=== PATIENT | female | born 1970 | race Caucasian/White ===

== ENCOUNTER 2016-10-06 07:09 | Emergency (ER) | payer BC ==
[2016-10-06] MEDS ORDERED: Sulfamethox/Trimethoprim DS 800/160* TAB PO ONE (07:32)
--- NOTE | 2016-10-06 07:32 | UC ---
Complaint Female HPI - HPI Summary HPI Summary: URINARY FREQUENCY X 1 DAY NO FEVER, NO CHILLS, NO FLANK PAIN - History Of Current Complaint Chief Complaint: UCGU Stated Complaint: URINARY COMPLAINT Time Seen by Provider: 10/06/16 07:13 Hx Obtained From: Patient Hx Last Menstrual Period: 10/03/16 ?: No Onset/Duration: Sudden Onset, Lasting Days - 1, Still Present Timing: Constant Severity Initially: Moderate Severity Currently: Moderate Character: Burning Aggravating Factor(s): Nothing Alleviating Factor(s): Nothing Associated Signs And Symptoms: Negative: Fever, Back Pain, Vaginal Bleeding/ Discharge, Vaginal Discharge, Nausea, Vomiting(# Of Episodes =), Genital Swelling, Genital Blisters, Retained Foregin Body (Specify) - Allergies/Home Medications Allergies/Adverse Reactions: Allergies Allergy/AdvReac Type Severity Reaction Status Date / Time Cefaclor [From Ceclor] Allergy Hives Verified 10/06/16 07:14 Morphine Allergy Hives Verified 10/06/16 07:14 Home Medications: Home Medications Phenazopyridine HCl [Azo Urinary Pain Relief] 95 mg PO ONCE PRN 10/06/16 [ History Confirmed 10/06/16] PMH/Surg Hx/FS Hx/Imm Hx Endocrine History Of: Reports: Diabetes - boarderline Cardiovascular History Of: Reports: Hypertension - Surgical History Surgical History: Yes Surgery Procedure, Year, and Place: C-Sections, 1991 2002. Cholecystectomy, 1993 - Family History Known Family History: Positive: Diabetes Negative: Cardiac Disease - Social History Alcohol Use: Occasionally Substance Use Type: None Smoking Status (MU): Former Smoker When Did the Patient Quit Smoking/Using Tobacco: 24 years ago Review of Systems Constitutional: Negative Skin: Negative Eyes: Negative ENT: Negative Respiratory: Negative Genitourinary: Dysuria, Frequency All Other Systems Reviewed And Are Negative: Yes Physical Exam Triage Information Reviewed: Yes Appearance: Well-Appearing, Obese Vital Signs: Initial Vital Signs Temp 97.6 F 10/06/16 07:16 Pulse 94 10/06/16 07:16 Resp 20 10/06/16 07:16 BP 142/76 10/06/16 07:16 Pulse Ox 97 10/06/16 07:16 Vital Signs Reviewed: Yes Eyes: Positive: Conjunctiva Clear ENT: Positive: Normal ENT inspection, Hearing grossly normal, Pharynx normal Neck: Positive: Supple, Nontender, No Lymphadenopathy Respiratory: Positive: Chest non-tender, Lungs clear, Normal breath sounds Cardiovascular: Positive: RRR, No Murmur, Pulses Normal Abdominal Exam: Normal Abdomen Description: Positive: Nontender, Soft. Negative: CVA Tenderness (R), CVA Tenderness (L), Distended, Guarding Bowel Sounds: Positive: Present Skin Exam: Normal Complaint Female Dx - Differential Dx/Diagnosis Provider Diagnoses: UTI Discharge - Discharge Plan Condition: Stable Disposition: HOME Prescriptions: Sulfamethox/Trimethoprim DS* [Bactrim DS 800/160 TAB*] 1 tab PO BID #14 tab Patient Education Materials: Urinary Tract Infection in Women (ED) Referrals: Eladia Hernandez [Primary Care Provider] - If Needed
[2016-10-06 07:58] VITALS: BP 147/90
== END 2016-10-06 07:53 | disposition home or self-care (01) ==
LOC: UCCORT 07:09
DX: N39.0 Urinary tract infection, site not specified (principal); Z88.1 Allergy status to other antibiotic agents; Z88.5 Allergy status to narcotic agent; Z87.891 Personal history of nicotine dependence; E66.9 Obesity, unspecified
CPT/HCPCS: 87077; 87086; 99212; A9270-GY; G0463

== ENCOUNTER 2016-10-26 18:01 | Emergency (ER) | payer BC ==
[2016-10-26 19:15] VITALS: BP 120/77
--- NOTE | 2016-10-26 19:50 | UC ---
Throat Pain/Nasal Don HPI - HPI Summary HPI Summary: The patient comes in today for: 1. Sore throat: Onset: This morning. Palliative/provocative: Swallowing: Ice cubes and popsicles help. Quality: [place] Region: Throat. Severity: 8/10 Time: Constant. Associated symptoms: Fevers: 101 at home. Rhinitis: None. Cough: None. Patient states that she has had no problems with amoxil or augmentin. * - History of Current Complaint Chief Complaint: UCGeneralIllness Stated Complaint: ST,TROUBLE SWALLOWING,EAR PAIN Time Seen by Provider: 10/26/16 19:34 Hx Obtained From: Patient Hx Last Menstrual Period: 10/03/16 ?: No - Allergies/Home Medications Allergies/Adverse Reactions: Allergies Allergy/AdvReac Type Severity Reaction Status Date / Time [facility] Allergy Hives Verified 10/26/16 19:07 Morphine Allergy Hives Verified 10/26/16 19:07 Home Medications: Home Medications Ibuprofen [Advil] 800 mg PO PRN 10/26/16 [History] PMH/Surg Hx/FS Hx/Imm Hx Previously Healthy: No Endocrine History Of: Reports: Diabetes - boarderline Denies: Thyroid Disease, Hyperthyroidism, Hypothyroidism, Dyslipidemia Cardiovascular History Of: Reports: Hypertension Denies: Cardiac Disorders, Pacemaker/ICD, Myocardial Infarction, Congestive Heart Failure, Atrial Fibrillation, Deep Vein Thrombosis, Bleeding Disorders Respiratory History Of: Denies: COPD, Asthma, Bronchitis, Pneumonia, Pulmonary Embolism GI/ History Of: Reports: Gastroesophageal Reflux Denies: Ulcer, Gastrointestinal Bleed, Gall Bladder Disease, Kidney Stones, Diverticulitis, Renal Disease, Urosepsis Neurological History Of: Reports: Migraine Denies: TIA, CVA, Dementia, Seizures Psychological History Of: Reports: Depression Denies: Anxiety, Bipolar Disorder, Schizophrenia, Post Traumatic Stress Disorder Cancer History Of: Denies: Lung Cancer, Colorectal Cancer, Breast Cancer, Prostate Cancer, Cervical Cancer Other History Of: Negative For: HIV, Hepatitis B, Hepatitis C, Anticoagulant Therapy - Surgical History Surgical History: Yes Surgery Procedure, Year, and Place: C-Sections, 1991 2002. Cholecystectomy, 1993 - Family History Known Family History: Positive: Diabetes Negative: Cardiac Disease - Social History Occupation: Employed Full-time Alcohol Use: Occasionally Substance Use Type: None Smoking Status (MU): Former Smoker When Did the Patient Quit Smoking/Using Tobacco: 24 years ago - Immunization History Most Recent Influenza Vaccination: not utd Review of Systems Constitutional: Fever Skin: Negative Eyes: Negative ENT: Sore Throat Respiratory: Cough Cardiovascular: Negative Gastrointestinal: Vomiting - 1:15 PM x 1. Genitourinary: Negative All Other Systems Reviewed And Are Negative: Yes Physical Exam Triage Information Reviewed: Yes Appearance: Well-Appearing, No Pain Distress, Well-Nourished Vital Signs: Initial Vital Signs Temp 100.4 F 10/26/16 19:12 Pulse 111 10/26/16 19:12 Resp 16 10/26/16 19:12 BP 120/77 10/26/16 19:12 Pulse Ox 94 10/26/16 19:12 Vital Signs Reviewed: Yes Eyes: Positive: Conjunctiva Clear. Negative: Discharge ENT: Positive: Hearing grossly normal, Pharyngeal erythema, Other: - No asymmetry.. Negative: Nasal congestion, Nasal drainage, TM bulging, TM dull, TM red, Tonsillar swelling, Tonsillar exudate Dental: Negative: Gross Decay/Caries @, Dental Fracture @ Neck: Positive: Supple, Nontender, No Lymphadenopathy. Negative: Nuchal Rigidity Respiratory: Positive: Chest non-tender, Lungs clear, No respiratory distress, No accessory muscle use. Negative: Crackles, Wheezing Cardiovascular: Positive: RRR, No Murmur Abdomen Description: Positive: Nontender, No Organomegaly, Soft. Negative: Distended, Guarding Musculoskeletal: Positive: Strength Intact, ROM Intact Neurological: Positive: Alert, Muscle Tone Normal Psychological: Positive: Age Appropriate Behavior, Consolable Skin: Negative: rashes, breakdown Diagnostics - Laboratory Diagnostic Studies Completed/Ordered: Strep test: (+) Throat Pain/Nasal Course/Dx - Course Course Of Treatment: Patient was told of the positive strep - Differential Dx/Diagnosis Differential Diagnosis/HQI/PQRI: Otitis Media, Tonsillitis Provider Diagnoses: Strep throat. Discharge - Discharge Plan Condition: Stable Disposition: HOME Patient Education Materials: Strep Throat (ED) Forms: *Work Release Referrals: Velia Rosas [Primary Care Provider] -
[2016-10-26] MEDS ORDERED: Penicillin VK TAB* 250 MG PO ONE (21:02)
[2016-10-26] MEDS ORDERED: Lidocaine 2% VISCOUS* 15 ML UDC SWISH SPIT ONE (21:03)
== END 2016-10-26 21:18 | disposition home or self-care (01) ==
LOC: UCCORT 18:01
DX: J02.0 Streptococcal pharyngitis (principal); Z88.1 Allergy status to other antibiotic agents; Z88.5 Allergy status to narcotic agent; Z90.49 Acquired absence of other specified parts of digestive tract; Z87.891 Personal history of nicotine dependence
CPT/HCPCS: 87651; 99212; A9270-GY; G0463

== ENCOUNTER 2018-05-06 15:48 | Emergency (ER) | payer BC ==
--- NOTE | 2018-05-06 16:41 | UC ---
Hand/Wrist HPI - HPI Summary HPI Summary: 48 yo female presents with right forearm pain that began 2 days ago. 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 Pain worse with movement or lifting. She has been taking ibuprofen for her discomfort with no relief. Denies numbness or tingling. - History Of Current Complaint Stated Complaint: RIGHT WRIST PAIN Time Seen by Provider: 05/06/18 16:40 Hx Obtained From: Patient Hx Last Menstrual Period: 10/03/16 Onset/Duration: Gradual Onset Severity Initially: Moderate Severity Currently: Moderate Pain Intensity: 8 Pain Scale Used: 0-10 Numeric - Allergies/Home Medications Allergies/Adverse Reactions: Allergies Allergy/AdvReac Type Severity Reaction Status Date / Time cefaclor [From [facility]] Allergy Hives Verified 05/06/18 16:46 morphine Allergy Hives Verified 05/06/18 16:46 Home Medications: Home Medications Acetaminophen [Tylophen] 1,000 mg PO DAILY 05/06/18 [History Confirmed 05/06/18] Lisinopril 10 mg PO DAILY 05/06/18 [History Confirmed 05/06/18] Naproxen [Naproxen 500 mg tab] 1,000 mg PO Q6H 05/06/18 [History Confirmed 05/06] PMH/Surg Hx/FS Hx/Imm Hx Endocrine History: Diabetes GI/ History: Gastroesophageal Reflux Psychological History: Anxiety, Depression Other History Of: Negative For: HIV, Hepatitis B, Hepatitis C, Anticoagulant Therapy - Surgical History Surgical History: Yes Surgery Procedure, Year, and Place: C-Sections, 1991 2002. Cholecystectomy, 1993 - Family History Known Family History: Positive: Diabetes Negative: Cardiac Disease - Social History Occupation: Employed Full-time Lives: With Family Alcohol Use: Occasionally Substance Use Type: None Smoking Status (MU): Former Smoker When Did the Patient Quit Smoking/Using Tobacco: 24 years ago - Immunization History Most Recent Influenza Vaccination: not utd Review of Systems Constitutional: Negative Skin: Negative Respiratory: Negative Cardiovascular: Negative Neurovascular: Negative Musculoskeletal: Other: - Right forearm pain Neurological: Negative Psychological: Negative All Other Systems Reviewed And Are Negative: Yes Physical Exam - Summary Physical Exam Summary: GENERAL: NAD. WDWN. No pain distress. SKIN: No rashes, sores, lesions, or open wounds. CHEST: No accessory muscle use. Breathing comfortably and in no distress. CV: Pulses intact radial and ulnar. Cap refill <2seconds MSK: Right forearm: Moderate TTP about brachioradialis - worse at origin along epicondyle. Moderate TTP at cubital tunnel. Strength 5/5 including surg nurse strength. No edema or obvious bony deformities. NEURO: Alert. Sensations intact hand and all fingers. PSYCH: Age appropriate behavior. Triage Information Reviewed: Yes Vital Signs: Vital Signs: Temp Pulse Resp BP Pulse Ox 98.4 F 106 18 148/91 98 05/06/18 16:41 05/06/18 16:41 05/06/18 16:41 05/06/18 16:41 05/06/18 16:41 Vital Signs Reviewed: Yes Hand/Wrist Course/Dx - Course Course Of Treatment: Suspect tendinitis - advised to RICE, continue NSAIDs, and try arm band. F/u with Orthopedics. - Differential Dx/Diagnosis Provider Diagnoses: Right forearm tendinitis Discharge - Sign-Out/Discharge Documenting (check all that apply): Patient Departure All imaging exams completed and their final reports reviewed: No Studies - Discharge Plan Condition: Stable Disposition: HOME Prescriptions: Meloxicam 7.5 mg PO BID PRN #20 tablet PRN Reason: Pain Patient Education Materials: Cubital Tunnel Syndrome (ED), Tendinitis (ED) Referrals: Elidia Apodaca PA [Primary Care Provider] - Oni Deras MD [Medical Doctor] - As Soon As Possible Micah Downing MD [Medical Doctor] - If Needed Additional Instructions: If you develop a fever, shortness of breath, chest pain, new or worsening symptoms - please call your PCP or go to the ED. Your blood pressure was high at todays visit. Please see your primary provider within 4 weeks for recheck and re-evaluation. 1) Rest and Ice your arm as much as possible 2) Try and [id number] arm brace 3) Do NOT take ibuprofen/naproxen/aleve with the Meloxicam as these medications may interact 4) Please call Orthopedics at the number below to schedule a follow up appointment - Billing Disposition and Condition Condition: STABLE Disposition: Home
[2018-05-06 16:52] VITALS: BP 148/91
== END 2018-05-06 17:13 | disposition home or self-care (01) ==
LOC: UCCORT 15:48
DX: M77.9 Enthesopathy, unspecified (principal); Z88.1 Allergy status to other antibiotic agents; Z88.5 Allergy status to narcotic agent; E11.9 Type 2 diabetes mellitus without complications; F17.210 Nicotine dependence, cigarettes, uncomplicated
CPT/HCPCS: 99212; G0463